=== PATIENT | female | born 1990 | race American Indian/Alaskan Native ===

== ENCOUNTER 2019-03-01 13:42 | Emergency (ER) | payer OTHER, MEDICAID ==
[~2019-03-01] VITALS: Ht 177.8 cm; Wt 81.7 kg
[~2019-03-01 13:42] MED LIST: CEFDINIR PO; DOXYCYCLINE 10100 MG PO; NOHOMEMEDICATIONS; PENICILLIN VK500 M1 PO
[2019-03-01] MEDS ORDERED: CIPROFLOXIN HC2.5 M1 OPHTHALMIC (14:48)
[2019-03-01 15:04] VITALS: BP 119/80
== END 2019-03-01 15:05 | disposition home or self-care (01) ==
LOC: M.ERS 13:42
DX: H18.823 Corneal disorder due to contact lens, bilateral (principal)